=== PATIENT | male | born 1945 | race Caucasian/White ===

== ENCOUNTER → 2018-05-05 10:58 | Outpatient (CLI) | payer MEDICARE, SELFPAY ==
--- NOTE | 2018-05-05 11:00 | XR_ITS ---
XR chest 2V HISTORY: Cough and weight loss ITS.REASON: cough and wt loss 7 lbs ORDERING PHYSICIAN: Rocael Wyatt PATIENT AGE: 72 years COMPARISON: None available FINDINGS: The cardiomediastinal silhouette and pulmonary vascularity are within normal limits. The lungs are clear without infiltrates, suspicious nodules, or pleural effusions. No acute bony abnormalities. There are multilevel degenerative changes mid and lower thoracic spine. IMPRESSION: Negative chest, no acute finding
== END ==
PROVIDERS: PCP Nurse Practitioner Family; Visit Provider Nurse Practitioner Family
DX: R05 Cough (principal)
CPT/HCPCS: 71046

== ENCOUNTER 2023-04-01 11:25 | Emergency (ER) | payer MEDICARE, SELFPAY ==
[2023-04-01] VITALS (11 sets, daily range): BP systolic 115–157; BP diastolic 63–84; PULSE 58–110; RESP 16–24; TEMP 36.7–37; O2SAT 95–99; BMI 28.3
--- NOTE | 2023-04-01 11:38 | CT_ITS ---
FINAL REPORT CLINICAL HISTORY: seizure COMPARISON: None FINDINGS: Axial images of the head were obtained without contrast. Coronal reformatted images were also obtained.This study was performed with techniques to keep radiation doses as low as reasonably achievable (ALARA). Individualized dose reduction techniques using automated exposure control or adjustment of mA and/or kV according to the patient's size were employed. There is no evidence of intracranial hemorrhage or mass. The ventricular size is within normal limits. There is no evidence of shift of the midline structures. No abnormal extra axial fluid collection is identified. No skull abnormality is seen on the bone window images. IMPRESSION: No acute intracranial abnormality. Reviewed, Interpreted and Dictated by Niles Irby III, MD Transcribed by Lanie Keane Authenticated and [facility]
[2023-04-01 11:49] LABS: Basophils # 0.1 K/mm3 (0-0.2); Basophils % 0.7 % (0.1-2.0); Eosinophils # 0.2 K/mm3 (0.0-0.4); Eosinophils % 1.8 % (0.1-12.0); Hematocrit 51.1 % (42.0-52.0); Hemoglobin 16.3 g/dL (14.1-18.0); Lymphocytes # 3.9 K/mm3 (0.7-4.5); Lymphocytes % 40.5 % (10-50); Mean Corpuscular HGB Conc 31.9 g/dL (31.8-35.4); Mean Corpuscular Hemoglobin 30.3 pg (27.0-31.2); Mean Corpuscular Volume 95.1 fl (80-94); Mean Platelet Volume 7.5 fl (7.4-10.4); Monocytes # 0.8 K/mm3 (0.1-1.0); Monocytes % 8.6 % (1.7-9.3); Neutrophils # 4.7 K/mm3 (1.8-7.8); Neutrophils % 48.4 % (37.0-80.0); Platelet Count 298 K/mm3 (142-424); Red Blood Count 5.37 M/mm3 (4.60-6.20); Red Cell Distribution Width 13.6 % (11.5-17.5); White Blood Count 9.7 K/mm3 (4.8-10.8)
[2023-04-01 11:50] LABS: Chloride 100 mmol/L (98-107); Sodium 137 mmol/L (136-145)
[2023-04-01 11:51] LABS: Potassium 3.7 mmoL/L (3.5-5.1)
[2023-04-01 11:53] LABS: Alanine Aminotransferase 48 U/L (12-78); Albumin Level 4.6 g/dl (3.5-5.0); Albumin/Globulin Ratio 1.4 (1.1-1.8); Alkaline Phosphatase 91 U/L (38-126); Anion Gap 23.7 mEq/L (5-15); Aspartate Amino Transferase 64 U/L (17-59); Bilirubin,Total 0.5 mg/dl (0.2-1.3); Blood Urea Nitrogen 16 mg/dl (9-20); Calcium 8.5 mg/dl (8.4-10.2); Carbon Dioxide 17 mmol/L (22.0-30.0); Creatinine Clearance Estimated 56 mL/min (50-200); Estimated Glomerular Filt Rate 59 ml/min (>60); GFR (African American) 71 ML/MIN (>60); Globulin 3.2 g/dL (1.3-3.2); Glucose 137 mg/dl (74-100); Total Protein,Serum 7.8 g/dl (6.3-8.2)
[2023-04-01 11:59] LABS: POC Glucose,Bedside 150 (70-110)
--- NOTE | 2023-04-01 12:10 | ECG_ITS ---
APPROVED REPORT Exam: Resting ECG HR:71 bpm ECG Measurements Heart Rate 71 AXES QRSd 85 QRS 43 QT 428 T 54 QTc 451 Conclusion ATRIAL FIBRILLATION POSSIBLE RIGHT VENTRICULAR CONDUCTION DELAY [RSR (QR) IN V1/V2] ABNORMAL RHYTHM ECG INTERPRETATION BASED ON A DEFAULT AGE OF 40 YEARS UNCONFIRMED REPORT Electronically signed by : Curt Fragoso MD 04/02/2023 20:12:39
--- NOTE | 2023-04-01 13:33 | HMH.EDGENADL ---
Discharge Plan Disposition Patient Disposition: Home, Self-Care Prescriptions Prescriptions: New levetiracetam [Keppra] 500 mg tablet 500 mg PO BID Qty: 60 0RF No Action metoprolol succinate 50 mg tablet extended release 24 hr 50 mg PO ONCE rosuvastatin [Crestor] 10 mg tablet 10 mg PO ONCE rivaroxaban [Xarelto] 20 mg tablet 20 mg PO QPM Referrals Follow up/Referrals: Provider,Referral, MD [Primary Care Provider] - See instructions Clinical Impressions Clinical Impression: New onset seizure Instructions Patient Instructions: DI for Seizure Disorder -- Adult, DI for Seizure (Not Epilepsy/Seizure Disorder), DI for Seizure Disorder -- Child Discharge ED Provider: [facility] HPI General Chief complaint: Seizure Stated complaint: seizure Time Seen by Provider: 04/01/23 12:14 Mode of Arrival: EMS Source of Information: Patient Limitations: No Limitations Description of Symptoms (Recalled from ER Triage Doc. by RN): pt to the ED via EMS after a seizure at home. pt reports the patient was sitting his his recliner when she noticed him convulsing. pt called 911 and was told to assist the patient to the floor. pt denies a history of seizures. on assessment pt is alert and oriented. pt has dried blood around his mouth and appears to have bitten his right side of his tongue. History of Present Illness HPI narrative: This is a 77-year-old male with a history of A-fib on Xarelto who presents to the emergency room after having a witnessed tonic-clonic seizure according to his . There was evidence of oral trauma. Patient has no history of seizure. There was no incontinence of stool or urine upon arrival to the emergency room patient was AAO x4. But he states he does remember what happens Related Data Home Medications Medication Instructions Recorded Confirmed metoprolol succinate 50 mg 50 mg PO ONCE 05/05/18 tablet,extended release 24 hr rivaroxaban 20 mg tablet (Xarelto) 20 mg PO QPM 05/05/18 rosuvastatin 10 mg tablet (Crestor) 10 mg PO ONCE 05/05/18 Previous Rx's Medication Instructions Recorded levetiracetam 500 mg tablet 500 mg PO BID #60 tabs 04/01/23 (Keppra) Allergies Allergy/AdvReac Type Severity Reaction Status Date / Time No Known Allergies Allergy Verified 05/05/18 10:50 [facility] Disclaimer: The information contained in this section may have been updated after the patient was seen, as this information can be updated by other users. Social History Smoking Status: Never smoker alcohol intake: never current occupational status: retired Travel in the last 8 weeks: None ROS Obtained: Yes All systems reviewed & no additional complaints except as documented Skin no rash or lesions HEENT no runny nose sore throat Pulmonary no cough or shortness of breath Cardiovascular no chest pain pressure heaviness GI no abdominal pain nausea or vomiting no dysuria pyuria hematuria Musculoskeletal no neck or back pain Neuro: See HPI Endocrine no polydipsia polyuria or polyphasia Psych no SI or HI The rest of the systems were reviewed and found to be negative Physical Exam Narrative Physical exam: Skin: Warm and dry HEENT: Normocephalic atraumatic extract muscles are intact pupils are equal and reactive to light there was evidence of oral trauma. Neck: Supple nontender Lungs: Clear to auscultation Heart: Regular rate and rhythm Abdomen: NABS soft nontender Extremities: No clubbing cyanosis or edema Neurologic: No unilateral weakness or numbness Lymphatic: No cervical or inguinal adenopathy Musculoskeletal: No tenderness of the dorsal or lumbar spine Psych: No SI or HI General General appearance: alert Respiratory Respiratory exam: Present normal lung sounds bilaterally Cardiovascular Cardiovascular exam: Present regular rate and normal rhythm Neurological Exam Neurological exam: Present alert Medical Decision Making
--- NOTE | 2023-04-01 14:16 | PC.NURSE ---
called [facility] for neuro, they are to call back.
--- NOTE | 2023-04-01 14:19 | PC.NURSE ---
speaking with [facility]
--- NOTE | 2023-04-01 14:26 | PC.NURSE ---
[facility] to call pt for follow up appt.
--- NOTE | 2023-04-01 14:28 | PC.NURSE ---
AMIE Billings spoke with dr. tate
--- NOTE | 2023-04-01 14:28 | PC.NURSE ---
called MRI for head MRI of pt. approved per chinedu white in care management
--- NOTE | 2023-04-01 14:32 | MR_ITS ---
FINAL REPORT CLINICAL HISTORY: NEW ONSET SEIZURE COMPARISON: None FINDINGS: Multiplanar MR imaging of the brain was performed without contrast. There is no evidence of intracranial hemorrhage or mass. There are mild chronic ischemic/gliotic changes. The ventricular size is normal. There is no evidence of shift of the midline structures. No area of restricted diffusion is identified. The posterior fossa and brainstem have an unremarkable appearance. Normal major vessel vascular flow voids are seen. IMPRESSION: No acute intracranial abnormality. Reviewed, Interpreted and Dictated by Niles Irby III, MD Transcribed by Lanie Keane Authenticated and [facility]
--- NOTE | 2023-04-01 15:15 | PC.NURSE ---
Pt. to MRI
--- NOTE | 2023-04-01 16:07 | PC.NURSE ---
Pt. returned from MRI.
--- NOTE | 2023-04-01 16:30 | PC.NURSE ---
Rounded on patient, pt. asleep.
== END 2023-04-01 17:41 | disposition home or self-care (01) ==
PROVIDERS: Emergency Provider Emergency Medicine
DX: R56.9 Unspecified convulsions (principal); I48.91 Unspecified atrial fibrillation; Z79.01 Long term (current) use of anticoagulants
CPT/HCPCS: 70450; 70551; 80053; 82962; 85025; 93005; 96374; 99285; J1953